=== PATIENT | male | born 1955 | race Caucasian/White ===

== ENCOUNTER → 2017-04-23 | Outpatient (CLI) | payer BC, MEDICARE | END | disposition home or self-care (01) | LOC: PCVCCLINIC 13:57 | PROVIDERS: ATTEND Internal Medicine | DX: I25.10 Atherosclerotic heart disease of native coronary artery without angina pectoris (principal); I42.9 Cardiomyopathy, unspecified; I10 Essential (primary) hypertension; E78.5 Hyperlipidemia, unspecified; F17.210 Nicotine dependence, cigarettes, uncomplicated; Z79.82 Long term (current) use of aspirin | CPT/HCPCS: 80061; 93005; G0463 ==

== ENCOUNTER → 2018-07-24 | Outpatient (CLI) | payer BC, MEDICARE ==
--- NOTE | 2018-07-24 14:07 | PCVCIMAG ---
APPROVED REPORT Indications Stenosis Risk Factors Hypertension: Hyperlipidemia History of Smoking CAD Doppler Spectral Velocity Analysis PSV / EDVPSV / EDV ECA (R) 108 / 19 cm/sECA (L) 97 / 21 cm/s dICA (R) 73 / 26 cm/sdICA (L) 79 / 28 cm/s Alejandra (R) 57 / 17 cm/smICA (L) 72 / 28 cm/s pICA (R) 53 / 24 cm/spICA (L) 61 / 21 cm/s Bulb (R) 66 / 13 cm/sBulb (L) 65 / 21 cm/s dCCA (R) 94 / 23 cm/sdCCA (L) 98 / 24 cm/s mCCA (R) 92 / 21 cm/smCCA (L) 96 / 26 cm/s Vert (R) 57 / 20 cm/sVert (L) 43 / 10 cm/s ICA/CCA 0.78ICA/CCA 0.81 Basic Measurements Blood Pressure: Pulses: Right Left RightLeft Brachial(Sitting) 128/46blHt156/60mmHgTemporal Real Time B-Mode Imaging Vert. (R)AntegradeVert. (L)Antegrade Findings The right carotid bulb has mild plaque. The right proximal internal carotid artery shows no significant stenosis. The right common carotid artery shows no significant stenosis. The right external carotid artery shows no significant stenosis. Conclusion 1. Mild bilateral plaquing without significant stenosis 2. Antegrade vertebral flow
--- NOTE | 2018-07-24 15:14 | PCVCIMAG ---
APPROVED REPORT Study performed: 07/24/2018 13:39:36 Exam: Stress Echocardiogram Indication: CAD, stent Patient Location: Echo lab Stress Nurse: Yvonne Fitzpatrick RN Status: routine Ht: 5 ft 11 in HR: 85 bpm BP: 118/74 mmHg Rhythm: NSR, PVC's Medical History Medical History: CAD s/p stent, Smoking, Hyperlipidemia, HTN Procedure The patient underwent an Exercise Stress Test using the Noble Protocol. Blood pressure, heart rate, and EKG were monitored. An Echocardiogram was performed by nuclear medicine technician in four stages in quad fashion. At peak stress, four selected images were obtained and placed side by side with resting images for comparison. Stress Test Details Stress Test: Exercise stress testing was performed using a Noble protocol. HR Resting HR: 85 bpmMax Heart Rate (APMHR): 159 bpm Max HR Achieved: 126 bpmTarget HR (85% APMHR): 135 bpm % of APMHR: 79 HR response to stress: Normal HR response to stress BP Resting BP: 118/74 mmHg Max BP: 140/80 mmHg Recovery BP: 122/74 mmHg ECG Resting ECG: Sinus Rhythm, PVC's Stress ECG: Sinus Rhythm, PVC's Arrhythmia: VPC's Recovery ECG: Sinus Rhythm Clinical Reason for Termination: Knee pain Exercise duration: 5 min 10 sec Highest Stage Achieved: Stage 2: 2.5 mph at 12% grade. Overall Exercise Capacity for Age: Poor Pre-Stress Echo The resting Echocardiogram showed normal left ventricular contractility with an estimated Ejection Fraction of about >55%. Post-Stress Echo The stress Echocardiogram showed normal left ventricular contractility with an estimated Ejection Fraction of about 55-60%. Conclusion Clinical Response: Non-ischemic Exercise Capacity: Below Average Stress ECG Response: Non-ischemic Stress Echo Images: Non-ischemic Normal stress echocardiogram with submaximal exercise stress. Other Information Study Quality: Adequate <Conclusion> Normal stress echocardiogram with submaximal exercise stress.
== END | disposition home or self-care (01) ==
LOC: PCVCIMAG 13:25
PROVIDERS: ATTEND Internal Medicine
DX: I10 Essential (primary) hypertension (principal); I65.23 Occlusion and stenosis of bilateral carotid arteries; I25.10 Atherosclerotic heart disease of native coronary artery without angina pectoris; I25.5 Ischemic cardiomyopathy; F17.200 Nicotine dependence, unspecified, uncomplicated; E78.5 Hyperlipidemia, unspecified
CPT/HCPCS: 93325; 93351; 93880

== ENCOUNTER → 2019-07-17 | Outpatient (CLI) | payer BC, MEDICARE | END | disposition home or self-care (01) | LOC: PCVCCLINIC 16:28 | PROVIDERS: ATTEND Internal Medicine | DX: I25.10 Atherosclerotic heart disease of native coronary artery without angina pectoris (principal); I25.5 Ischemic cardiomyopathy; I10 Essential (primary) hypertension; G47.33 Obstructive sleep apnea (adult) (pediatric); E78.5 Hyperlipidemia, unspecified; F17.200 Nicotine dependence, unspecified, uncomplicated; Z79.82 Long term (current) use of aspirin; Z79.899 Other long term (current) drug therapy | CPT/HCPCS: 93005; G0463 ==